=== PATIENT | female | born 1935 | race Caucasian/White ===

== ENCOUNTER → 2017-01-23 | Outpatient (CLI) | payer MEDICARE, OTHER ==
[~2017-01-23] MED LIST: REGADENOSON 0.4 MG/5 ML DISP.SYRIN. IV ONE
--- NOTE | 2017-01-23 11:25 | PCVCIMAG ---
APPROVED REPORT Study performed: 01/23/2017 08:25:49 EXAM: Comprehensive 2D, Doppler, and color-flow Echocardiogram Patient Location: Echo lab Status: routine Other Information Study Quality: Adequate Indications Abnormal ECG Palpitations Chest Pain 2D Dimensions LVEF(%): 55.30 (>50%) IVSd: 11.57 (7-11mm) LVDd: 46.29 mm PWd: 12.22 (7-11mm) LVDs: 33.01 (25-40mm) Left Atrium: 41.45 (27-40mm) Aortic Root: 29.69 mm LV Single Plane 4CH: 58.41 % LV Single Plane 2CH: 50.54 %Colin's LVEF: 54.47 % Biplane EF: 56.3 % Volumes Left Atrial Volume (Systole) Single Plane 4CH: 90.08 mLSingle Plane 2CH: 91.36 mL LA ESV Index: 53.00 mL/m2 Aortic Valve AoV Peak Mane.: 1.43 m/s AO Peak Gr.: 8.20 mmHgLVOT Max P.24 mmHg LVOT Max V: 1.03 m/s Mitral Valve E/A Ratio: 0.9 MV Decel. Time: 241.51 ms MV E Max Mane.: 1.05 m/s MV A Mane.: 1.21 m/s IVRT: 83.04 ms Pulmonary Valve PV Peak Mane.: 0.89 m/sPV Peak Gr.: 3.14 mmHg Pulmonary Vein P Vein S: 0.70 m/sP Vein A: 0.33 m/s P Vein D: 0.53 m/sP Vein A Dur.: 131.5 msec P Vein S/D Ratio: 1.32 Tricuspid Valve TR Peak Mane.: 3.00 m/s TR Peak Gr.: 36.00 mmHg Left Ventricle The left ventricle is normal size. There is normal LV segmental wall motion. Mild concentric left ventricular hypertrophy. Left ventricular systolic function is normal. The left ventricular ejection fraction is within the normal range. LVEF is 55-60%. Grade I - abnormal relaxation pattern. Right Ventricle The right ventricle is normal size. The right ventricular systolic function is normal. Atria Left atrium is moderately dilated. The right atrium size is normal. Aortic Valve The aortic valve is normal in structure. No aortic regurgitation is present. There is no aortic valvular stenosis. Mitral Valve Posterior mitral annular calcification. Mild mitral regurgitation. No evidence of mitral valve stenosis. Tricuspid Valve The tricuspid valve is normal in structure. Mild tricuspid regurgitation with a PAP of 43 mmHg. Pulmonic Valve The pulmonary valve is normal in structure. There is no pulmonic valvular regurgitation. Great Vessels The aortic root is normal in size. IVC is normal in size and collapses with >50% inspiration Pericardium There is no pericardial effusion. <Conclusion> The left ventricle is normal size. Mild concentric left ventricular hypertrophy. Left ventricular systolic function is normal. The right ventricle is normal size. Left atrium is moderately dilated. The aortic valve is normal in structure. Mild mitral regurgitation. Mild tricuspid regurgitation with a PAP of 43 mmHg.
--- NOTE | 2017-01-23 16:07 | PCVCIMAG ---
APPROVED REPORT Exam: Nuclear Stress Test Indication: Chest Pain, Dyspnea, Fatigue, Palpitations Patient Location: Out-Patient Stress Nurse: Zulay Marte RN, Maxine Griffiths RN [place] Tech:Raj SETH Vargas Ht: 5 ft 5 in Wt: 170 lbs BSA: 1.85 m2 HR: 99 bpm BP: 168/82 mmHg BMI: 28.2 Rhythm: SR Medical History Medical History: Age, Hyperlipidemia, HTN, Former Smoker Medications: HCTZ, Toprol, Benicar Allergies: None Pretest Chest Pain Characteristics: No chest pain Exercise History: Physically active Meds Held (24 hrs): Toprol Stress Test Details Stress Test: Pharmacologic stress was paired with low level exercise. Reason for pharmacologic stress test: changed from exercise stress test due to inability to reach target heart rate. HR Resting HR: 99 bpmMax Heart Rate (APMHR): 137 bpm Max HR Achieved: 137 bpmTarget HR (85% APMHR): 116 bpm % of APMHR: 100 Recovery HR: 101 bpm BP Resting BP: 168/82 mmHg Max BP: 156/72 mmHg Recovery BP: 161/61 mmHg ECG Resting ECG: Sinus Rhythm Stress ECG: Sinus Tachycardia ST Change: Non-ischemic Recovery ECG: Sinus Tachycardia Clinical Reason for Termination: Completed Protocol Stress Symptoms: Dyspnea, Nausea, Headache Symptoms resolved with caffeine. NM EXAM: Myocardial Perfusion REST/STRESS Imaging Protocol: Rest Tc-99m/Stress Tc-99m 1 day Resting Data Rest SPECT myocardial perfusion imaging was performed in supine position 45 minutes following the intravenous injection of mCi of Tc-99m Sestamibi. Time of rest injection: Date: 01/23/2017 Pharmacologic Stress Pharmacologic stress test was performed by injecting Regadenoson 0.4 mg IV push followed by the intravenous injection of 33.6 mCi of Tc-99m Sestamibi. Time of stress injection: 1045 Date: 01/23/2017 The images were gated to evaluate regional wall motion and calculate left ventricular ejection fraction. Study Quality Study: Good Study Data Post stress, the left ventricular ejection was 68%.. SSS: 0 SRS: 0 SDS: 0 TID = 0.89. Perfusion Normal left ventricular perfusion. Normal perfusion on both the stress and rest images. Wall Motion Normal left ventricular wall motion. Clinical Findings: Nondiagnostic EKG Findings: Nonischemic Nuclear Conclusion This study is of low probability for inducible ischemia or prior infarct. Normal global and segmental LV systolic function.
== END | disposition home or self-care (01) ==
LOC: PCVCIMAG 08:24
PROVIDERS: ATTEND Internal Medicine Cardiovascular Disease
DX: I08.1 Rheumatic disorders of both mitral and tricuspid valves (principal); I10 Essential (primary) hypertension; R94.31 Abnormal electrocardiogram [ECG] [EKG]; E78.5 Hyperlipidemia, unspecified; M19.90 Unspecified osteoarthritis, unspecified site; R00.0 Tachycardia, unspecified; Z87.891 Personal history of nicotine dependence; Z90.49 Acquired absence of other specified parts of digestive tract; Z90.710 Acquired absence of both cervix and uterus; Z96.653 Presence of artificial knee joint, bilateral; Z79.899 Other long term (current) drug therapy
CPT/HCPCS: 78452; 93017; 93306; A9500; G0463; J2785